=== PATIENT | male | born 1990 | race Caucasian/White ===

== ENCOUNTER 2017-12-29 10:12 | Emergency (ER) | payer BC ==
[2017-12-29 14:16] VITALS: BP 153/104
--- NOTE | 2017-12-29 14:45 | UC ---
Respiratory Complaint HPI - HPI Summary HPI Summary: fever and cough cold and body aches for 5 days - History of Current Complaint Chief Complaint: UCRespiratory Stated Complaint: URI Time Seen by Provider: 12/29/17 14:36 Hx Obtained From: Patient Onset/Duration: Sudden Onset, Lasting Days - 5, Still Present Timing: Constant Severity Initially: Mild Severity Currently: Mild Pain Intensity: 0 Character: Cough: Nonproductive Aggravating Factors: Nothing Alleviating Factors: Nothing Associated Signs And Symptoms: Positive: Pleuritic Chest Pain, URI - Allergies/Home Medications Allergies/Adverse Reactions: Allergies Allergy/AdvReac Type Severity Reaction Status Date / Time No Known Allergies Allergy Verified 12/29/17 14:07 Home Medications: Home Medications Dm/Acetaminophen/Doxylamine [Night Time Cold-Flu Rlf Sftgl] 1 cap PO BID PRN 10/05 [History Confirmed 12/29/17] Ibuprofen TAB* [Advil TAB*] 2 tab PO TID 12/29/17 [History Confirmed 12/29/17] PMH/Surg Hx/FS Hx/Imm Hx Previously Healthy: Yes - Surgical History Surgical History: None - Family History Known Family History: Positive: None - Social History Occupation: Employed Full-time Lives: With Family Alcohol Use: Weekly Substance Use Type: None Smoking Status (MU): Never Smoked Tobacco Review of Systems Constitutional: Fever, Chills, Fatigue Skin: Negative Eyes: Negative ENT: Negative Respiratory: Cough Cardiovascular: Negative Gastrointestinal: Negative Genitourinary: Negative Motor: Negative Neurovascular: Negative Musculoskeletal: Negative Neurological: Negative Psychological: Negative Is Patient Immunocompromised?: No All Other Systems Reviewed And Are Negative: Yes Physical Exam Triage Information Reviewed: Yes Appearance: Well-Appearing, No Pain Distress, Well-Nourished Vital Signs: Initial Vital Signs Temp 98.6 F 12/29/17 14:09 Pulse 94 12/29/17 14:09 Resp 16 12/29/17 14:09 BP 153/104 12/29/17 14:09 Pulse Ox 95 12/29/17 14:09 Vital Signs Reviewed: Yes Eye Exam: Normal Eyes: Positive: Conjunctiva Clear ENT Exam: Normal ENT: Positive: Normal ENT inspection, Hearing grossly normal, Pharynx normal, TMs normal, Uvula midline. Negative: Nasal congestion, Tonsillar swelling, Tonsillar exudate, Trismus, Muffled voice, Hoarse voice, Dental tenderness, Sinus tenderness Dental Exam: Normal Neck exam: Normal Neck: Positive: Supple, Nontender, No Lymphadenopathy Respiratory Exam: Normal Respiratory: Positive: Chest non-tender, Lungs clear, Normal breath sounds, No respiratory distress, No accessory muscle use Cardiovascular Exam: Normal Cardiovascular: Positive: RRR, No Murmur, Pulses Normal, Brisk Capillary Refill Musculoskeletal Exam: Normal Musculoskeletal: Positive: Strength Intact, ROM Intact, No Edema Neurological Exam: Normal Neurological: Positive: Alert, Muscle Tone Normal Psychological Exam: Normal Skin Exam: Normal UC Diagnostic Evaluation - Laboratory O2 Sat by Pulse Oximetry: 95 Diagnostic Studies Comment: Influenza A/B (-) Respiratory Course/Dx - Course Course Of Treatment: Albuterol, zithromax, robitussin, increase fluids, rest follow with pcp prn - Differential Dx/Diagnosis Provider Diagnoses: Acute bronchitis with bronchospasm Discharge - Discharge Plan Condition: Stable Disposition: HOME Prescriptions: Albuterol HFA INHALER* [Ventolin HFA Inhaler*] 2 puff INH Q4H PRN #1 mdi PRN Reason: cough chest tightness Azithromycin TAB* [Zithromax TAB (Z-MAMADOU) 250 mg #6 tabs] 2 tab PO .TODAY, THEN 1 DAILY #1 mamadou Patient Education Materials: Acute Bronchitis (ED), Hypertension (ED), Bronchospasm (ED) Forms: *Work Release Referrals: Maged Kellogg MD [Primary Care Provider] - 2 Weeks
== END 2017-12-29 15:40 | disposition home or self-care (01) ==
LOC: UCEAST 10:12
DX: J20.9 Acute bronchitis, unspecified (principal)
CPT/HCPCS: 87502; 99212; G0463